=== PATIENT | female | born 1985 | race Caucasian/White ===

== ENCOUNTER 2017-04-14 07:38 | Day surgery (SDC) | payer BC ==
[~2017-04-14 07:38] MED LIST: Lactated Ringers 1,000 ML IV SCH; Lidocaine 2% with EPINEPHrine 1:100,000 20 ML MDV ONE; Midazolam 1 MG/ML 2 ML SDV ONE; Propofol 200 MG/20 ML SDV ONE; fentaNYL 100 MCG/2 ML SDV ONE
--- NOTE | 2017-04-14 08:25 | PCM.PREANE ---
Preanesthetic Assessment - Anesthesia/Transfusion/Family Hx Anesthesia History: Prior Anesthesia Without Reaction Family History of Anesthesia Reaction: No Transfusion History: No Prior Transfusion(s) Intubation History: Unknown - Review of Systems General: No Symptoms Pulmonary: No Symptoms Cardiovascular: No Symptoms Gastrointestinal: No Symptoms Neurological: No Symptoms Other: Reports: None - Physical Assessment Height: 1.63 m Weight: 68.039 kg ASA Class: 3 Mental Status: Alert & Oriented x3 Airway Class: Mallampati = 2 Dentition: Reports: Partial Thyro-Mental Finger Breadths: 3 Mouth Opening Finger Breadths: 3 ROM/Head Extension: Limited/Partial Lungs: Clear to Auscultation, Normal Respiratory Effort Cardiovascular: Regular Rate, Regular Rhythm - Allergies Allergies/Adverse Reactions: Allergies Allergy/AdvReac Type Severity Reaction Status Date / Time pregabalin [From Lyrica] Allergy Anaphylactic Verified 02/18/16 09:31 Shock tetracycline Allergy Anaphylactic Verified 04/10/17 17:06 Shock - Blood Blood Available: No - Anesthesia Plan Pre-Op Medication Ordered: None - Acknowledgements Anesthesia Type Planned: General Anesthesia Pt an Appropriate Candidate for the Planned Anesthesia: Yes Alternatives and Risks of Anesthesia Discussed w Pt/Guardian: Yes Pt/Guardian Understands and Agrees with Anesthesia Plan: Yes PreAnesthesia Questionnaire HEENT History: Reports: Hard of Hearing Other HEENT History: wears glasses, has upper removal partial denture, is hard of hearing and has bilateral hearing aides (doesn't wear them) Gastrointestinal History: Reports: GERD Musculoskeletal History: Reports: Other (See Below) Other Musculoskeletal History: head contractured s/p anoxic brain injury Neurological History: Reports: Brain Injury, Other (See Below) Other Neuro History: dystonia, had anoxic brain injury 2 years ago, since unable to speak and difficulty walking Psychiatric History: Reports: ADHD, Anxiety, Depression - Past Surgical History HEENT Surgical History: Reports: Tonsillectomy GI Surgical History: Reports: None Neurological Surgical History: Reports: None - SUBSTANCE USE Smoking Status *Q: Former Smoker Tobacco Use Within Last Twelve Months: No Recreational Drug Use History: No - HOME MEDS Home Medications: Home Meds ALPRAZolam [Xanax] 1 mg PO TID 04/10/17 [History] Celecoxib [CeleBREX] 200 mg PO BID 04/10/17 [History] Dextroamphetamine/Amphetamine [Adderall 10 mg Tablet] 10 mg PO DAILY 04/10/17 [ History] Diazepam [Valium] 2.5 mg PO TID 04/10/17 [History] Sertraline [Zoloft] 100 mg PO DAILY 04/10/17 [History] - CURRENT (IN HOUSE) MEDS Current Meds: Current Medications Lactated Ringer's (Ringers, Lactated) 1,000 mls @ 125 mls/hr IV ASDIRECTED KRISTA Discontinued Medications Fentanyl (Sublimaze) Confirm Administered Dose 200 mcg .ROUTE .STK-MED ONE Stop: 04/14/17 07:27 Lidocaine/Epinephrine (Xylocaine 2% With Epinephrine 1:100,000) Confirm Administered Dose 20 ml .ROUTE .STK-MED ONE Stop: 04/14/17 07:14 Midazolam HCl (Versed 1 Mg/Ml) Confirm Administered Dose 2 mg .ROUTE .STK-MED ONE Stop: 04/14/17 07:28 Propofol (Diprivan 20 Ml) Confirm Administered Dose 200 mg .ROUTE .STK-MED ONE Stop: 04/14/17 07:27
[2017-04-14] MEDS ORDERED: Clindamycin Phosphate in D5W 600 MG in Premix Bag 1 BAG IV ONE ×2 (09:14)
[2017-04-14] MEDS ORDERED: Ketorolac 30 MG/ML SDV ONE (09:47)
[2017-04-14] MEDS: fentaNYL 100 MCG/2 ML SDV IVPUSH PRN ×3 (10:10→10:44)
[2017-04-14] MEDS ORDERED: Acetaminophen 1,000 MG in Premix Bag 1 BAG IV ONE (11:03)
--- NOTE | 2017-04-14 11:55 | OR ---
SURGEON: Yrn Childress DATE OF PROCEDURE: 04/14/2017 PREOPERATIVE DIAGNOSIS: Impacted wisdom teeth, number 1, 16, 17, and 32. POSTOPERATIVE DIAGNOSIS: Impacted wisdom teeth, number 1, 16, 17, and 32. PROCEDURE: Under general anesthesia surgical extractions of teeth, number 1, 16, 17, and 32. COMPLICATIONS: None. LINTING MACHINE OPERATOR: OR tech on-call today. ESTIMATED BLOOD LOSS: 2 mL of blood. TOTAL IV FLUIDS: 500 mL of LR. ANESTHESIA: General anesthesia via nasotracheal intubation. JUSTIFICATION FOR THIS PROCEDURE: June Tucker is a 31-year-old female patient who was referred to the [facility] by her dentist from [place], [place], for an evaluation and extractions of her wisdom teeth. June was having some pain and swelling and she was taken at that point, antibiotics to control her discomfort with her wisdom teeth. After careful evaluation, I decided with her and the patient that it will be on her best interest to have this case done in the hospital under general anesthesia due to her compromised medical history, inability to control herself very much on the operating room under sedation, and a letter was requested from her insurance company and they agree in having this procedure done in the hospital under general anesthesia. Consent form was obtained and signed without any reservations. All risks and benefits were thoroughly discussed with the patient. The patient had a medical clearance and she was scheduled to have this procedure done today as an outpatient at [facility] in [place], [place]. DESCRIPTION OF PROCEDURE: The patient was taken down to the operating room. She was placed in a supine position. She was identified by name and identification badge and at that point, she was turned over to anesthesia team. She was then nasotracheally intubated without any complications. She was turned back to the oral maxillofacial surgery team. She was prepped and draped in a sterile fashion for oral maxillofacial surgery procedure. An oropharyngeal throat pack was placed for airway protection and she was then anesthetized with lidocaine 2%, 1:100,000 with epinephrine. We used a total of 6 Carpules. We started surgery in the right quadrant teeth #1 and 32. With a 15 blade, we made a mid crystal incision distal of tooth #2 with a #9 periosteal elevator, we reflected a mucoperiosteal flap and then using a surgical saúl under constant irrigation, we removed part of the buccal cortex that was covering the tooth, the tooth was exposed, it was luxated and then removed without any complications. The surgical site was irrigated with normal saline solution with a John curette within the surgical site and with a bone file instrument, we smoothed all the bone surfaces and then we took sutures with 3-0 chromic in interrupted fashion. We went to the area of tooth #32 and with a 15 blade, we made a mucosal incision just distal of tooth #31 with a #9 periosteal elevator and reflected the mucoperiosteal flap. Using a 557 surgical saúl under constant irrigation with normal saline solution, we removed part of the buccal cortex and distal bone that was covering the crown of tooth #32. Tooth was then sectioned and removed without any complications. Surgical site was irrigated with normal saline solution. With a John curette, we curetted the surgical site. With a bone file instrument, we smoothed the bone surfaces and then we took sutures with 3-0 chromic in interrupted fashion. We packed the surgical site with 4x4 moist gauze. We went to the left side areas of teeth numbers 16 and 17. With a 15 blade, we made a mucosal incision distal of tooth #15 with a #9 periosteal elevator and reflected a mucoperiosteal flap. Using a 557 surgical saúl under constant irrigation with normal saline solution, we removed part of the buccal cortex that was covering the crown of tooth #16. The tooth was exposed, it was luxated and removed without any complications. Surgical site was irrigated with normal saline solution. With a John curette, we curetted this site and with a bone file instrument, we smoothed the bone surfaces and then we took sutures with 3-0 chromic interrupted fashion. We went to the area of tooth #17. With a 15 blade, we made mid crystal incision distal of tooth #18 with a #9 periosteal elevator reflected and reflected the mucoperiosteal flap. Using a 557 surgical saúl under constant irrigation with normal saline solution, we removed part of the buccal cortex and distal bone that was covering the crown of tooth #17. The tooth was exposed, it was then luxated, and then removed without any complications. The surgical site was irrigated with normal saline solution. With a bone file instrument, we smoothed the bone surfaces and then we took sutures with 3-0 chromic in interrupted fashion. We packed the surgical side with moist 4x4. We removed the oropharyngeal throat pack. The patient was cleaned, irrigated, and then turned back to the anesthesia team. She was extubated without any complications. She was transported to Anesthesia Recovery Unit and she was left in the hands of anesthesia recovery unit nurse in a stable condition. There were no complications for surgery. The patient tolerated the procedure well. Prescriptions were given to the patient and a followup appointment in a week at the [facility] in [place], [place]. Physician responsible for this operative report is Yrn Childress DDS. ANTOINETTE CAMARGO /[id number]
[2017-04-14 12:14] VITALS: BP 126/84
== END 2017-04-14 12:05 | disposition home or self-care (01) ==
LOC: MW.SDS 07:38
PROVIDERS: ATTEND Dentist Oral and Maxillofacial Surgery
DX: K01.1 Impacted teeth (principal); F32.9 Major depressive disorder, single episode, unspecified; F41.9 Anxiety disorder, unspecified; F90.9 Attention-deficit hyperactivity disorder, unspecified type; G93.1 Anoxic brain damage, not elsewhere classified; Z87.891 Personal history of nicotine dependence; Z90.89 Acquired absence of other organs; Z88.0 Allergy status to penicillin; Z88.1 Allergy status to other antibiotic agents; Z88.8 Allergy status to other drugs, medicaments and biological substances
CPT/HCPCS: 41899; 81025; J1885; J2250; J3010; J7120; 00170; J2704

== ENCOUNTER 2017-09-21 10:20 | Day surgery (SDC) | payer BC ==
[~2017-09-21 10:20] MED LIST changes: -Lidocaine 2% with EPINEPHrine 1:100,000 20 ML MDV ONE; -Midazolam 1 MG/ML 2 ML SDV ONE; -Propofol 200 MG/20 ML SDV ONE; +ceFAZolin 2 GM in Premix Bag 1 BAG IV ONE; -fentaNYL 100 MCG/2 ML SDV ONE
[2017-09-21] MEDS ORDERED: Lidocaine 2% 5 ML SDV ONE (10:40)
[2017-09-21] MEDS ORDERED: Propofol 200 MG/20 ML SDV ONE (10:40)
[2017-09-21] MEDS ORDERED: fentaNYL 100 MCG/2 ML SDV ONE (10:40)
[2017-09-21] MEDS ORDERED: Midazolam 1 MG/ML 2 ML SDV ONE (10:40)
--- NOTE | 2017-09-21 11:04 | PCM.PREANE ---
Preanesthetic Assessment - Anesthesia/Transfusion/Family Hx Anesthesia History: Prior Anesthesia Without Reaction Family History of Anesthesia Reaction: No Transfusion History: No Prior Transfusion(s) Intubation History: Unknown - Review of Systems Pulmonary: No Symptoms Cardiovascular: No Symptoms Gastrointestinal: Difficulty Swallowing Neurological: Pre-Existing Deficit, Trouble Speaking Other: Reports: None - Physical Assessment O2 Sat by Pulse Oximetry: 97 Respiratory Rate: 16 Vital Signs: Last Vital Signs Temp 36.5 C 09/21/17 10:34 Pulse 80 09/21/17 10:34 Resp 16 09/21/17 10:34 BP 118/76 09/21/17 10:34 Pulse Ox 97 09/21/17 10:34 Height: 1.6 m Weight: 68.039 kg ASA Class: 3 Airway Class: Mallampati = 3 Dentition: Reports: Normal Dentition ROM/Head Extension: Full Lungs: Clear to Auscultation, Normal Respiratory Effort Cardiovascular: Regular Rate, Regular Rhythm - Lab Values: Laboratory Last Values Urine HCG, Qual NEGATIVE (NEGATIVE) 09/21/17 10:40 - Allergies Allergies/Adverse Reactions: Allergies Allergy/AdvReac Type Severity Reaction Status Date / Time pregabalin [From Lyrica] Allergy Anaphylactic Verified 02/18/16 09:31 Shock tetracycline Allergy Anaphylactic Verified 09/18/17 14:10 Shock - Anesthesia Plan Pre-Op Medication Ordered: None - Acknowledgements Anesthesia Type Planned: General Anesthesia Pt an Appropriate Candidate for the Planned Anesthesia: Yes Alternatives and Risks of Anesthesia Discussed w Pt/Guardian: Yes Pt/Guardian Understands and Agrees with Anesthesia Plan: Yes PreAnesthesia Questionnaire HEENT History: Reports: Hard of Hearing, Other (See Below) Other HEENT History: wears glasses, has upper removable partial denture, has bilateral hearing aides, Swathi does not speak.. uses a talking board Gastrointestinal History: Reports: Other (See Below) Other Gastrointestinal History: dysphagia Musculoskeletal History: Reports: Other (See Below) Other Musculoskeletal History: severe muscle spasms Neurological History: Reports: Brain Injury Other Neuro History: anoxic brain injury due to drug overdose Psychiatric History: Reports: Depression - Past Surgical History HEENT Surgical History: Reports: Adenoidectomy, Oral Surgery, Tonsillectomy Other HEENT Surgeries/Procedures: wisdom teeth - SUBSTANCE USE Smoking Status *Q: Former Smoker Tobacco Use Within Last Twelve Months: No Recreational Drug Use History: Yes - HOME MEDS Home Medications: Home Meds ALPRAZolam [Xanax] 1.5 mg PO TID 04/10/17 [History] Diazepam [Valium] 5 mg PO TID 04/10/17 [History] Sertraline [Zoloft] 100 mg PO DAILY 04/10/17 [History] Carbidopa/Levodopa [Carbidopa-Levo ER 25-100] 3 tab PO TID 09/18/17 [History] Zolpidem Tartrate [Zolpidem Tartrate ER] 12.5 mg PO BEDTIME 09/18/17 [History] - CURRENT (IN HOUSE) MEDS Current Meds: Current Medications Lactated Ringer's (Ringers, Lactated) 1,000 mls @ 125 mls/hr IV ASDIRECTED KRISTA Last Admin: 09/21/17 10:40 Dose: 125 mls/hr Discontinued Medications Fentanyl (Sublimaze) Confirm Administered Dose 100 mcg .ROUTE .STK-MED ONE Stop: 09/21/17 10:41 Cefazolin Sodium/Dextrose 2 gm (/ Premix) 50 mls @ 100 mls/hr IV ONETIME ONE Stop: 09/21/17 03:51 Lidocaine (Xylocaine-Mpf 2%) Confirm Administered Dose 10 ml .ROUTE .STK-MED ONE Stop: 09/21/17 10:41 Midazolam HCl (Versed 1 Mg/Ml) Confirm Administered Dose 2 mg .ROUTE .STK-MED ONE Stop: 09/21/17 10:41 Propofol (Diprivan 20 Ml) Confirm Administered Dose 400 mg .ROUTE .STK-MED ONE Stop: 09/21/17 10:41
[2017-09-21] MEDS ORDERED: Lidocaine 4% 5 ML Amp ONE (11:39)
[2017-09-21] MEDS ORDERED: Glycopyrrolate 0.2 MG/ML SDV ONE (12:30)
--- NOTE | 2017-09-21 12:46 | PCM.OPNOTE ---
- General Post-Op/Procedure Note Date of Surgery/Procedure: 09/21/17 Operative Procedure(s): peg placement Findings: see dict [id number] Pre Op Diagnosis: failed swallow test and failed to thrive Post-Op Diagnosis: Same Anesthesia Technique: Moderate Sedation Primary Surgeon: Louis Marino Secondary Surgeon: Lori Rendon Complications: None Condition: Good
--- NOTE | 2017-09-21 13:10 | PCM.POSTAN ---
POST ANESTHESIA ASSESSMENT - MENTAL STATUS Mental Status: Alert, Oriented - RESPIRATORY Respiratory Status: Respiratory Rate WNL, Airway Patent, O2 Saturation Stable - CARDIOVASCULAR CV Status: Pulse Rate WNL, Blood Pressure Stable - GASTROINTESTINAL GI Status: No Symptoms - POST OP HYDRATION Hydration Status: Adequate & Stable
[2017-09-21] MEDS ORDERED: Acetaminophen/oxyCODONE 325-5 MG Tab PO PRN (13:12)
[2017-09-21] MEDS ORDERED: fentaNYL 100 MCG/2 ML SDV IVPUSH PRN (13:59)
[2017-09-21 14:47] VITALS: BP 118/71
[2017-09-21] MEDS ORDERED: Ketorolac 30 MG/ML SDV IVPUSH ONE (15:14)
--- NOTE | 2017-09-21 16:18 | PCM.POSTAN ---
POST ANESTHESIA ASSESSMENT - MENTAL STATUS Mental Status: Oriented - RESPIRATORY Respiratory Status: Respiratory Rate WNL, Airway Patent, O2 Saturation Stable - CARDIOVASCULAR CV Status: Pulse Rate WNL, Blood Pressure Stable - GASTROINTESTINAL GI Status: No Symptoms - POST OP HYDRATION Hydration Status: Adequate & Stable - OBSERVATIONS Free Text/Narrative:: good analgesia, VSS, is alert
--- NOTE | 2017-09-21 16:19 | PCM48HPAN ---
Post Anesthesia Note - EVALUATION WITHIN 48HRS OF ANESTHETIC Vital Signs in Normal Range: Yes Patient Participated in Evaluation: Yes Respiratory Function Stable: Yes Airway Patent: Yes Cardiovascular Function Stable: Yes Hydration Status Stable: Yes Pain Control Satisfactory: Yes Nausea and Vomiting Control Satisfactory: Yes Mental Status Recovered: Yes - COMMENTS/OBSERVATIONS Free Text/Narrative:: VSS, pain under control, ready for discharge, followup instructions given.
--- NOTE | 2017-09-22 06:26 | OR ---
SURGEON: Louis Marino MD DATE OF PROCEDURE: 09/21/2017 PREOPERATIVE DIAGNOSIS: Failure to thrive and failed swallowing test. POSTOPERATIVE DIAGNOSIS: Failure to thrive and failed swallowing test. PROCEDURE PERFORMED: PEG placement. GLUING MACHINE OPERATOR ELECTRONIC: Dr. Rendon. COMPLICATIONS: None. FINDINGS: The tube was in good position from the endoscopy after tube placement. PROCEDURE PERFORMED IN DETAIL: The patient was taken to the operating room and placed in a supine position. Upon the induction of general endotracheal anesthesia, the procedure was then started. Time-out was being called. The patient was identified, procedure identified, antibiotic given. Procedure was then started and I am doing the endoscopy part and Dr. Rendon, my prosthetic assistant is doing the tube insertion. Please refer to her dictation for detail. A well lubricated Voxie EGD scope was gently inserted through the oropharynx through the esophagus down to the stomach and oropharynx where the intubation is a little bit narrow, but the scope went through without incidence and proximal esophagus is free of disease. No stricture, inflammation, or infection, and distal esophagus at 40 shows salmon color change consistent with acid reflux and stomach rugae is normal in appearance. There is no blood or bile or food observed, but the antrum is very inflamed and in fact a couple of areas suggest a healed ulcer with inflammation, did not attempt to go into the duodenum. Then, a grabbing instrument was inserted through the endoscopy and then grabbed the guiding wire from insert percutaneous and then the guidewire and the scope was retrieved out through the mouth and then the G-tube was then attached to the guidewire and then went through the mouth and passed through and exit into the percutaneous from the skin after the gastrotomy and then the abutment was pushed down and attached to 4.5 marking and that and the rest of things were then placed correctly. EGD then inserted through the oropharynx and went into the stomach and examined and noted that abutment is in good position. Then, the scope was then withdrawn and followed by appropriate dressing. The patient was then transferred to recovery room in a hemodynamically stable condition. The patient tolerated the procedure well. There were no intraoperative complications. Dr. Marino was present through the whole procedure. JAMEEL / MARY JO /[id number]
--- NOTE | 2017-09-26 13:51 | OR ---
SURGEON: LORI RENDON MD DATE OF PROCEDURE: 09/21/2017 PREOPERATIVE DIAGNOSES: 1. Dysphagia. 2. Encephalopathy. POSTOPERATIVE DIAGNOSES: 1. Dysphagia. 2. Encephalopathy. PROCEDURE PERFORMED: Percutaneous endoscopic gastrostomy tube placement. PRIMARY SURGEON: Louis Marino MD. CHIEF MAINTENANCE SUPERVISOR: Lori Rendon MD. ANESTHESIA: General endotracheal anesthesia. FLUIDS: See anesthesia record. ESTIMATED BLOOD LOSS: 5 mL. FINDINGS: Antral gastric ulcer. PEG tube placed at 4.5 cm on the skin. COMPLICATIONS: None. INDICATIONS: Please see Dr. Marino's note for full details of the indications for this procedure. The patient had anoxic encephalopathy and has dysphagia, and need for permanent feeding access. I was asked to assist by Dr. Marino in this case. PROCEDURE IN DETAIL: The patient was brought to the operating room and was kept on the OR cart in supine position. A time-out was completed by Dr. Marino verifying the patient's name, age, date of , allergies, and procedure to be performed. General endotracheal anesthesia was induced. The patient was then placed in a beach chair position. Dr. Marino performed an endoscopic portion of this case. Please see his note for the further details. Once the stomach had been inflated, we were able to identify and transilluminate from the stomach onto the epigastric portion of the abdominal wall. We were able to palpate into the antrum through the abdominal wall. The upper abdomen was prepped and draped in the usual standard fashion. I passed a needle from the abdominal wall into the stomach, which was visualized via a scope. I anesthetized the skin overlying the area with 1% lidocaine with epinephrine. A 1 cm incision was made with an 11 blade. A guide needle was then placed through the incision in the stomach with direct visualization through the endoscope. The needle was removed, and a guidewire was placed down the vascular sheath that was left in place. The guidewire was then grasped with endoscope and pulled through the mouth. The feeding tube was looped around this guidewire and pulled back down through the stomach to the bumper. The feeding tube was flushed against the gastric mucosa. At the level of the abdominal wall, the tubing measured 4.5 cm. A bumper was put in place over the feeding tube and secured to the abdominal wall with interrupted 2-0 Prolene sutures. The patient tolerated the procedure well. Please see Dr. Marino's note for further details. MAHNAZ / MARY JO /[id number]
== END 2017-09-21 15:54 | disposition home or self-care (01) ==
LOC: MW.SDS 10:20
PROVIDERS: ATTEND Surgery
DX: R62.7 Adult failure to thrive (principal); R13.10 Dysphagia, unspecified; F17.210 Nicotine dependence, cigarettes, uncomplicated; Z88.1 Allergy status to other antibiotic agents; Z79.899 Other long term (current) drug therapy; Z90.89 Acquired absence of other organs
CPT/HCPCS: 43246; 81025; A9270; J1885; J2250; J3010; J7120; 00700; J2704